=== PATIENT | female | born 1930 | race Asian ===

== ENCOUNTER 2019-11-24 15:10 | Emergency (ER) | payer MEDICARE, BC ==
[~2019-11-24] VITALS: Ht 152.4 cm; Wt 45.8 kg
[2019-11-24 15:29] VITALS: BP 162/68
[2019-11-24] MEDS ORDERED: Acetaminophen 500mg (ES) tab PO ONE (15:45)
--- NOTE | 2019-11-24 16:15 | Diagnostic Imaging Report ---
Indication: Left foot pain. Trauma Comparison: None Findings: 3 views of the left foot were obtained. There is acute fracture involving the calcaneus. The fracture is comminuted and involves the plantar part of the calcaneus near the calcaneal tuberosity extending anteriorly toward the calcaneocuboid joint. There is likely involvement of the subtalar joint. Soft tissue swelling is present. The bones are osteopenic. IMPRESSION: Acute fracture of the calcaneus.
--- NOTE | 2019-11-24 16:16 | Diagnostic Imaging Report ---
Indication: left ankle pain Comparison: None Findings: 3 views of the left ankle obtained. There is a comminuted, acute fracture of the calcaneus. There may be a fracture of the cuboid as well. The calcaneal fracture involves, most notably the plantar part of the calcaneus near the plantar aponeurosis insertion. The fracture extends anteriorly and superiorly involving the subtalar joint as well as likely involving the calcaneocuboid joint. There is also a posterior fracture line extending toward the posterior subtalar joint and the Achilles insertion. Soft tissue swelling is present. IMPRESSION: Acute comminuted fracture of the calcaneus.
[2019-11-24 16:56] LABS: BASOPHILS % (AUTO) 1.4 % (0.0-2.0); EOSINOPHILS % (AUTO) 0.1 % (0.0-3.0); HEMATOCRIT 36.8 % (37.0-47.0); HEMOGLOBIN 11.9 G/DL (12.0-16.0); MEAN CORPUSCULAR VOLUME 96 FL (80-99); MONOCYTES % (AUTO) 12.5 % (1.0-10.0); NEUTROPHILS % (AUTO) 77.1 % (45.0-75.0); PLATELET COUNT 156 K/UL (150-450); RED BLOOD COUNT 3.82 M/UL (4.20-5.40); RED CELL DISTRIBUTION WIDTH 13.1 % (11.6-14.8)
[2019-11-24 17:18] LABS: ANION GAP 12 mmol/L (5-15); BLOOD UREA NITROGEN 19 mg/dL (7-18); CALCIUM 9.3 MG/DL (8.5-10.1); CARBON DIOXIDE 27 MMOL/L (21-32); CHLORIDE 103 MMOL/L (98-107); CREATININE 0.7 MG/DL (0.55-1.30); POTASSIUM 3.8 MMOL/L (3.5-5.1); SODIUM 142 MMOL/L (136-145)
[2019-11-24 17:25] VITALS: BP 146/62
[2019-11-24 17:31] LABS: ALANINE AMINOTRANSFERASE 28 U/L (12-78); ALBUMIN 3.8 G/DL (3.4-5.0); ALKALINE PHOSPHATASE 80 U/L (46-116); ASPARTATE AMINO TRANSFERASE 25 U/L (15-37); BILIRUBIN,TOTAL 1.3 MG/DL (0.2-1.0)
[2019-11-24 17:35] LABS: BILIRUBIN,DIRECT 0.2 MG/DL (0.0-0.3)
--- NOTE | 2019-11-24 19:40 | Emergency Room Report ---
History of Present Illness General Chief Complaint: Multiple Trauma/Fall Source: Patient Present Illness HPI 89-year-old female presents ED complaining of left foot pain and swelling. States that yesterday she was coming down from a stool and slipped landing straight on the left foot. Patient notes bruising and swelling and blistering the left foot. States she is having a hard time bearing weight. Is using a walker that she borrowed. Pain is a 9 out of 10, dull, nonradiating. Denies any other injuries. No other aggravating relieving factors. Denies any other associated symptoms Allergies: Coded Allergies: No Known Allergies (Unverified , 11/24/19) Patient History Past Medical History: HTN, CAD Social History: Denies: smoking, alcohol use, drug use Now: No Immunizations: UTD Reviewed Nursing Documentation: PMH: Agreed; PSxH: Agreed Nursing Documentation-PMH Past Medical History: No History, Except For Hx Cardiac Problems: Yes - bypass 2002 Hx Hypertension: Yes Hx Diabetes: Yes - high cholesterol Review of Systems All Other Systems: negative except mentioned in HPI Physical Exam Vital Signs Date Time Temp Pulse Resp B/P (MAP) Pulse Ox O2 Delivery O2 Flow Rate FiO2 11/24/19 15:19 98.2 82 18 190/84 (119) 97 Room Air Sp02 EP Interpretation: reviewed, normal General Appearance: no apparent distress, alert, GCS 15, non-toxic Head: normocephalic, atraumatic Eyes: bilateral eye normal inspection, bilateral eye PERRL ENT: hearing grossly normal, normal pharynx, no angioedema, normal voice Neck: full range of motion, supple/symm/no masses Respiratory: chest non-tender, lungs clear, normal breath sounds, speaking full sentences Cardiovascular #1: regular rate, rhythm, no edema Cardiovascular #2: 2+ carotid (R), 2+ carotid (L), 2+ radial (R), 2+ radial (L) , 2+ dorsalis pedis (R), 2+ dorsalis pedis (L) Gastrointestinal: normal bowel sounds, non tender, soft, non-distended, no guarding, no rebound Rectal: deferred Genitourinary: normal inspection, no CVA tenderness Musculoskeletal: back normal, normal range of motion, gait/station normal, tender - L foot, swelling Neurologic: alert, motor strength/tone normal, oriented x3, sensory intact, responsive, speech normal Psychiatric: judgement/insight normal, memory normal, mood/affect normal, no suicidal/homicidal ideation Reflexes: 3+ bicep (R), 3+ bicep (L), 3+ tricep (R), 3+ tricep (L), 3+ knee (R) , 3+ knee (L) Skin: other - bruising/ecchymoses/blistering L foot Lymphatic: no adenopathy Procedures Splinting Splinting : Consent: Verbal Splint: poserior short Pre-Proc Neuro Vasc Exam: normal Post-Proc Neuro Vasc Exam: normal Patient Tolerated: Well Complications: None Medical Decision Making Diagnostic Impression: Primary Impression: Left calcaneal fracture Qualified Codes: S92.002A - Unspecified fracture of left calcaneus, initial encounter for closed fracture ER Course Hospital Course 89 yo F presents to ED with L foot pain/swelling Differential diagnoses include: fracture, dislocation, contusion Clinical course Patient placed on stretcher. After initial history and physical I ordered pain meds, xrays of L foot and L ankle xrays show comminuted left calcaneal fracture I discussed with orthopedics. Patient requires trauma and higher level of care for this. Labs reviewed- no leukocytosis, electrolytes okay, hemoglobin/hematocrit okay No signs of compartment syndrome. Sensations and pulses intact. Placed in posterior splint. Discussed with trauma orthopedic team at [facility] who accepted the patient i. I feel this is a highly complex case requiring extensive working including EKG/Rhythm strip, Xray/CT/US, Blood/urine lab work, repeat exams while in ED, and administration of strong opiates/narcotics for pain control, admission to hospital or close patient follow up. Diagnosis - L calcaneal fx transferred in serious condition Labs Test 11/24/19 16:50 White Blood Count 8.0 K/UL (4.8-10.8) Red Blood Count 3.82 M/UL (4.20-5.40) Hemoglobin 11.9 G/DL (12.0-16.0) Hematocrit 36.8 % (37.0-47.0) Mean Corpuscular Volume 96 FL (80-99) Mean Corpuscular Hemoglobin 31.1 PG (27.0-31.0) Mean Corpuscular Hemoglobin Concent 32.3 G/DL (32.0-36.0) Red Cell Distribution Width 13.1 % (11.6-14.8) Platelet Count 156 K/UL (150-450) Mean Platelet Volume 6.3 FL (6.5-10.1) Neutrophils (%) (Auto) 77.1 % (45.0-75.0) Lymphocytes (%) (Auto) 9.0 % (20.0-45.0) Monocytes (%) (Auto) 12.5 % (1.0-10.0) Eosinophils (%) (Auto) 0.1 % (0.0-3.0) Basophils (%) (Auto) 1.4 % (0.0-2.0) Prothrombin Time 10.3 SEC (9.30-11.50) Prothromb Time International Ratio 1.0 (0.9-1.1) Activated Partial Thromboplast Time 27 SEC (23-33) Sodium Level 142 MMOL/L (136-145) Potassium Level 3.8 MMOL/L (3.5-5.1) Chloride Level 103 MMOL/L (98-107) Carbon Dioxide Level 27 MMOL/L (21-32) Anion Gap 12 mmol/L (5-15) Blood Urea Nitrogen 19 mg/dL (7-18) Creatinine 0.7 MG/DL (0.55-1.30) Estimat Glomerular Filtration Rate > 60 mL/min (>60) Glucose Level 115 MG/DL (74-106) Calcium Level 9.3 MG/DL (8.5-10.1) Total Bilirubin 1.3 MG/DL (0.2-1.0) Direct Bilirubin 0.2 MG/DL (0.0-0.3) Aspartate Amino Transf (AST/SGOT) 25 U/L (15-37) Alanine Aminotransferase (ALT/SGPT) 28 U/L (12-78) Alkaline Phosphatase 80 U/L (46-116) Total Protein 7.7 G/DL (6.4-8.2) Albumin 3.8 G/DL (3.4-5.0) Globulin 3.9 g/dL Albumin/Globulin Ratio 1.0 (1.0-2.7) Other X-Ray Diagnostic Results Other X-Ray Diagnostic Results #1: X-Ray ordered: L ankle # of Views/Limited Vs Complete: 3 View Indication: Pain EP Interpretation: Yes Interpretation: no dislocation, no soft tissue swelling, no fractures Impression: No acute disease Electronically Signed by: Electronically signed by Vincent Scherer MD Other X-Ray Diagnostic Results #2: X-Ray ordered: L foot # of Views/Limited Vs Complete: 3 View Indication: Pain EP Interpretation: Yes Interpretation: no dislocation, other - comminuted calcaneal fx Impression: Other - fx Electronically Signed by: Electronically signed by Vincent Scherer MD Last Vital Signs Date Time Temp Pulse Resp B/P (MAP) Pulse Ox O2 Delivery O2 Flow Rate FiO2 11/24/19 17:25 98.5 75 20 146/62 96 Room Air Status: improved Disposition: XFER [facility] Condition: Serious Referrals: NON PHYSICIAN (PCP) Vincent Scherer MD Nov 24, 2019 19:40
[2019-11-24 20:14] VITALS: BP 145/60
[2019-11-24 21:39] VITALS: BP 145/60
== END 2019-11-24 21:40 | disposition short-term general hospital (02) ==
LOC: EDBD 15:45 → EMR 15:45
DX: S92.002A Unspecified fracture of left calcaneus, initial encounter for closed fracture (principal); W17.89XA Other fall from one level to another, initial encounter; Y92.89 Other specified places as the place of occurrence of the external cause; I10 Essential (primary) hypertension; I25.10 Atherosclerotic heart disease of native coronary artery without angina pectoris; Z95.1 Presence of aortocoronary bypass graft; E11.9 Type 2 diabetes mellitus without complications; E78.00 Pure hypercholesterolemia, unspecified
CPT/HCPCS: 29515; 36415; 80053; 82248; 85025; 85610; 85730; 86850; 86900; 86901; 99284